=== PATIENT | female | born 1955 | race Caucasian/White ===

== ENCOUNTER 2017-06-23 14:18 | Emergency (ER) | payer MEDICARE ==
[~2017-06-23] VITALS: Ht 175.3 cm; Wt 95.0 kg
[2017-06-23 14:33] VITALS: BP 155/74; PULSE 75; RESP 19; TEMP 99; O2SAT 97
[2017-06-23] MEDS ORDERED: ATOR20TA15 PO (14:46)
[2017-06-23] MEDS ORDERED: TREX5TAB PO (14:46)
[2017-06-23] MEDS ORDERED: TOFA5TAB PO (14:46)
--- NOTE | 2017-06-23 14:48 | PD ---
HPI Chief Complaint: Pain: Acute or Chronic Time Seen by Provider: 14:36 Travel History International Travel<30 days: No Contact w/Intl Traveler<30days: No Traveled to known affect area: No History of Present Illness HPI 61-year-old female came to the emergency room with history of right knee swelling that started about 10 days ago. Is progressively worsening. Patient says that she has history of rheumatoid arthritis and 2 weeks ago she had her knee joint aspirated by her cutter [employer]. She says it felt good after the fluid was taken out but then about 3-4 days later it started to swell up again. She has been started on medications. Her cutter [employer] reeds is from [place]. Vital signs otherwise stable. No history of trauma. She has some pain in the back of her leg as well within the back of her calf as well as back of her thigh. No history of fever or chills. Vital signs are stable. [facility] Past Medical History Narrative Medical List of her past medical, surgical, social and family history is reviewed from the nursing note. Arthritis: Yes (RA) High Cholesterol: Yes Tetanus Vaccination: Unknown ?: Not Past Surgical History Other Surgery: Yes (foot) Social History Alcohol Use: Yes Tobacco Use: No Substance Use: No Allergies-Medications (Allergen,Severity, Reaction): Coded Allergies: hydrocodone (Verified Allergy, Intermediate, 06/23/17) tramadol (Verified Allergy, Intermediate, 06/23/17) Comments List of her allergies reviewed from the nursing note. Reported Meds & Prescriptions Reported Meds & Active Scripts Active Reported Trexall (Methotrexate) 5 Mg Tab 5 Mg PO Q7D Xeljanz (Tofacitinib) 5 Mg Tab 5 Mg PO BID Atorvastatin (Atorvastatin Calcium) 20 Mg Tab 20 Mg PO HS Narrative Medication List of her home medications reviewed from the nursing note Review of Systems Except as stated in HPI: all other systems reviewed are Neg Musculoskeletal: Positive: Arthralgias, Pain Physical Exam Narrative GENERAL: Awake, alert, mildest SKIN: Focused skin assessment warm/dry. HEAD: Atraumatic. Normocephalic. EYES: Pupils equal and round. No scleral icterus. No injection or drainage. ENT: No nasal bleeding or discharge. Mucous membranes pink and moist. NECK: Trachea midline. No JVD. CARDIOVASCULAR: Regular rate and rhythm. No murmur appreciated. RESPIRATORY: No accessory muscle use. Clear to auscultation. Breath sounds equal bilaterally. GASTROINTESTINAL: Abdomen soft, non-tender, nondistended. Hepatic and splenic margins not palpable. MUSCULOSKELETAL: No obvious deformities. No clubbing. No cyanosis. No edema. Right knee is swollen compared to the left. No erythema or warmth of the skin overlying the joint. NEUROLOGICAL: Awake and alert. No obvious cranial nerve deficits. Motor grossly within normal limits. Normal speech. PSYCHIATRIC: Appropriate mood and affect; insight and judgment normal. Data Data Last Documented VS Orders Orders Knee, Complete (4vws) (06/23/17 ) Ed Discharge Order (06/23/17 16:37) ^ Knee Immobilizer (06/23/17 16:39) MDM Medical Decision Making Medical Screen Exam Complete: Yes Emergency Medical Condition: Yes Medical Record Reviewed: Yes Differential Diagnosis Knee joint arthritis, knee joint effusion Narrative Course 4:15 PM awaiting for x-ray read. 4:37 PM x-ray is read as tricompartmental arthritis. No effusion has been noticed by the radiologist. Patient will be discharged home on knee immobilizer. Procedures EKG Prior to Arrival: No Diagnosis Primary Impression: Rheumatoid arthritis Qualified Codes: M05.761 - Rheumatoid arthritis with rheumatoid factor of right knee without organ or systems involvement Additional Impression: Arthritis of knee Additional Instructions: Follow-up with your cutter [employer]. Keep the knee immobilizer on for the next 48 hours at all hours except taking shower. Return to the ER if condition worsens or any other new concerns. Med/Other Pt SpecificInfo: No Change to Meds Disposition: 01 DISCHARGE HOME Condition: Stable Alissa Haile MD June 23, 2017 14:48
--- NOTE | 2017-06-23 16:24 | RADRPT ---
EXAM DATE/TIME: 06/23/2017 15:44 [facility] COMPARISON: No previous studies available for comparison. INDICATIONS : Right knee pain for 2 weeks. No injury. MEDICAL HISTORY : Hypercholesterolemia. Rheumatoid arthritis. SURGICAL HISTORY : Total hip replacement, bilateral. ENCOUNTER: Initial ACUITY: 2 weeks PAIN SCORE: 6/10 LOCATION: Right knee. FINDINGS: The examination demonstrates advanced tricompartmental osteoarthritis. No acute fracture or destructi ve lesion is seen. CONCLUSION: 1. Advanced tricompartmental osteoarthritis. Nish Saleh MD on June 23, 2017 at 16:20 Board Certified Radiologist. This report was verified electronically.
== END 2017-06-23 17:10 | disposition home or self-care (01) ==
LOC: NEPD 14:18
DX: M05.761 Rheumatoid arthritis with rheumatoid factor of right knee without organ or systems involvement (principal); M17.11 Unilateral primary osteoarthritis, right knee; E78.00 Pure hypercholesterolemia, unspecified
CPT/HCPCS: 73564; 99283